=== PATIENT | female | born 1990 | race Two or more races ===

== ENCOUNTER → 2024-07-09 | Emergency (ER) | payer OTHER ==
[~2024-07-09] VITALS: Ht 154.9 cm; Wt 72.6 kg
== END | disposition left against medical advice (07) ==
LOC: ER 21:40
DX: Z53.21 Procedure and treatment not carried out due to patient leaving prior to being seen by health care provider (principal)

== ENCOUNTER 2024-07-15 13:20 | Outpatient (CLI) | payer OTHER | END 2024-07-15 13:21 | disposition home or self-care (01) | LOC: PRENATAL 13:20 | PROVIDERS: ATTEND Obstetrics & Gynecology Maternal & Fetal Medicine | DX: O36.80X0 Pregnancy with inconclusive fetal viability, not applicable or unspecified (principal); Z36.82 Encounter for antenatal screening for nuchal translucency; Z14.8 Genetic carrier of other disease; O09.519 Supervision of elderly primigravida, unspecified trimester; Z3A.12 12 weeks gestation of pregnancy ==

== ENCOUNTER → 2024-09-08 10:25 | Outpatient (CLI) | payer OTHER | END | disposition home or self-care (01) | LOC: PRENATAL 10:25 | PROVIDERS: ATTEND Obstetrics & Gynecology Maternal & Fetal Medicine | DX: O44.00 Complete placenta previa NOS or without hemorrhage, unspecified trimester (principal); O09.519 Supervision of elderly primigravida, unspecified trimester; O26.879 Cervical shortening, unspecified trimester; Z3A.20 20 weeks gestation of pregnancy ==

== ENCOUNTER 2024-09-20 11:49 | Outpatient (CLI) | payer OTHER ==
[2024-09-20 11:37] VITALS: BP 101/65
[2024-09-20] MEDS ORDERED: ENDOMETRIN100 MG VG (12:14)
[2024-09-20] MEDS ORDERED: PRENATAL TABLE1 EAC1 PO (12:14)
[2024-09-20] MEDS ORDERED: RINGERS SOLUTION,LACTATED 1,000 ML IV SCH (12:15)
[2024-09-20] MEDS ORDERED: CHILDREN'S ASPI81 MG (12:15)
[2024-09-20 12:20] LABS: PH,URINE 6.5 (5.0-8.0); URINE APPEARANCE Clear; URINE BACTERIA 117.5 uL (0.0-1933); URINE BILIRRUBIN Negative (NEGATIVE); URINE BLOOD Negative; URINE COLOR Yellow; URINE EPITHELIAL CELLS 5.6 uL (0.0-38.8); URINE GLUCOSE Negative (NEGATIVE); URINE KETONE Negative (NEGATIVE); URINE LEUKOCYTE Negative; URINE NITRATE Negative; URINE PROTEIN Negative (NEGATIVE); URINE RBC 15.9 uL (0.0-20.8); URINE UROBILINOGEN 0.2 E.U./dl; URINE WBC 6.3 uL (0.0-23.2)
[2024-09-20 12:32] LABS: URINE CAST 0.14 uL (0.0-1.40)
[2024-09-20 15:34] VITALS: BP 98/62
[2024-09-20 19:22] VITALS: BP 100/70
== END 2024-09-20 17:59 | disposition home or self-care (01) ==
LOC: OBS/DEL 11:49
PROVIDERS: ATTEND General Practice
DX: O26.892 Other specified pregnancy related conditions, second trimester (principal); O26.849 Uterine size-date discrepancy, unspecified trimester; O36.8199 Decreased fetal movements, unspecified trimester, other fetus; O26.879 Cervical shortening, unspecified trimester; Z3A.22 22 weeks gestation of pregnancy

== ENCOUNTER 2024-10-04 08:04 | Outpatient (CLI) | payer OTHER ==
[~2024-10-04 08:04] MED LIST: CHILDREN'S ASPI81 MG; ENDOMETRIN100 MG VG; PRENATAL TABLE1 EAC1 PO
== END 2024-10-04 08:05 | disposition home or self-care (01) ==
LOC: PRENATAL 08:04
PROVIDERS: ATTEND Obstetrics & Gynecology Maternal & Fetal Medicine
DX: O26.849 Uterine size-date discrepancy, unspecified trimester (principal); O09.519 Supervision of elderly primigravida, unspecified trimester; O26.879 Cervical shortening, unspecified trimester; Z3A.24 24 weeks gestation of pregnancy

== ENCOUNTER 2024-11-05 10:34 | Outpatient (CLI) | payer OTHER | END 2024-11-05 10:35 | disposition home or self-care (01) | LOC: PRENATAL 10:34 | PROVIDERS: ATTEND Obstetrics & Gynecology Maternal & Fetal Medicine | DX: O26.849 Uterine size-date discrepancy, unspecified trimester (principal); O09.519 Supervision of elderly primigravida, unspecified trimester; O26.879 Cervical shortening, unspecified trimester; O99.019 Anemia complicating pregnancy, unspecified trimester; Z3A.29 29 weeks gestation of pregnancy ==

== ENCOUNTER 2024-11-09 08:44 | Outpatient (CLI) | payer OTHER | END 2024-11-09 08:46 | disposition home or self-care (01) | LOC: PRENATAL 08:44 | PROVIDERS: ATTEND Obstetrics & Gynecology Maternal & Fetal Medicine | DX: Z76.1 Encounter for health supervision and care of foundling (principal) ==

== ENCOUNTER → 2024-12-16 08:27 | Outpatient (CLI) | payer OTHER | END | disposition home or self-care (01) | LOC: PRENATAL 08:27 | PROVIDERS: ATTEND Obstetrics & Gynecology Maternal & Fetal Medicine | DX: O26.849 Uterine size-date discrepancy, unspecified trimester (principal); O36.8199 Decreased fetal movements, unspecified trimester, other fetus; O09.519 Supervision of elderly primigravida, unspecified trimester; O99.019 Anemia complicating pregnancy, unspecified trimester; Z3A.35 35 weeks gestation of pregnancy ==

== ENCOUNTER 2024-12-21 10:39 | Outpatient (CLI) | payer OTHER | END 2024-12-21 10:40 | disposition home or self-care (01) | LOC: PRENATAL 10:39 | PROVIDERS: ATTEND Obstetrics & Gynecology Maternal & Fetal Medicine | DX: Z76.1 Encounter for health supervision and care of foundling (principal) ==

== ENCOUNTER → 2025-01-06 12:10 | Outpatient (CLI) | payer OTHER ==
[~2025-01-06 12:10] MED LIST changes: +INTEGRA PLUS C1 EACH PO
== END | disposition home or self-care (01) ==
LOC: PRENATAL 12:10
PROVIDERS: ATTEND Obstetrics & Gynecology Maternal & Fetal Medicine
DX: O26.849 Uterine size-date discrepancy, unspecified trimester (principal); O36.8199 Decreased fetal movements, unspecified trimester, other fetus; O99.019 Anemia complicating pregnancy, unspecified trimester; Z3A.38 38 weeks gestation of pregnancy

== ENCOUNTER 2025-01-07 17:23 | Inpatient (IN) | payer OTHER ==
[~2025-01-07] VITALS: Ht 154.9 cm; Wt 93.9 kg
[2025-01-07 16:21] VITALS: BP 118/64; O2SAT 97
[~2025-01-07 17:23] MED LIST changes: -INTEGRA PLUS C1 EACH PO
[2025-01-07] MEDS ORDERED: INTEGRA PLUS C1 EACH PO (17:27)
[2025-01-07] MEDS ORDERED: RINGERS SOLUTION,LACTATED 1,000 ML IV SCH (17:30)
[2025-01-07 18:13] LABS: URINE APPEARANCE Cloudy; URINE BILIRRUBIN Negative (NEGATIVE); URINE BLOOD Large; URINE COLOR Yellow; URINE GLUCOSE Negative (NEGATIVE); URINE KETONE Trace (NEGATIVE); URINE LEUKOCYTE Moderate; URINE NITRATE Negative; URINE PROTEIN 30 (NEGATIVE); URINE UROBILINOGEN 1.0 E.U./dl
[2025-01-07 18:14] LABS: BASO % 0.3 % (0.1-1.2); EOS # 0.18 (0.04-0.54); EOS % 2.0 % (0.7-7.0); LYMPH # 1.09 (1.18-3.74); LYMPH % 12.2 % (19.3-53.1); MEAN PLATELET VOLUME 11.50 fl (9.4-12.4); MONO # 0.56 (0.24-0.82); MONO % 6.3 % (4.7-12.5); NEUT # 6.99 (1.56-6.13); NEUT % 78.4 % (34.0-71.1); RED CELL DISTRIBUTION WIDTH 18.3 % (11.6-14.4)
[2025-01-07 18:16] LABS: URINE BACTERIA 7245.4 uL (0.0-1933); URINE EPITHELIAL CELLS 79.3 uL (0.0-38.8); URINE RBC 35.4 uL (0.0-20.8); URINE WBC 173.6 uL (0.0-23.2)
[2025-01-07 18:26] LABS: URINE CAST 0.14 uL (0.0-1.40)
[2025-01-07 18:27] LABS: TYPE CELLS SQUAMOUS
[2025-01-07 18:38] LABS: INR 0.96
[2025-01-07 18:43] LABS: ALT/SGPT 26.0 U/L (12-78); AST/SGOT 24.0 U/L (15-37); BILIRUBIN TOTAL 0.3 mg/dL (0.3-1.2); BUN CREA RATIO 25.0 (7.0-25.0); CREATININE SERUM 0.61 mg/dL (0.55-1.02); GFR 110.98; GLOBULINA 3.7 G/DL (2.4-3.5); GLUCOSE FASTING 71.0 mg/dL (65-100); OSMOLALITY SERUM 279.0 MOSM/KG (275-295)
[2025-01-07 19:39] VITALS: BP 110/73
[2025-01-07] MEDS ORDERED: DIPHENHYDRAMINE HCL 50 MG/ML VIAL 1ML IV SCH (21:00)
[2025-01-07 23:21] VITALS: BP 112/73
[2025-01-08] VITALS (8 sets, daily range): BP systolic 106–117; BP diastolic 70–80; O2SAT 100
[2025-01-08] MEDS ORDERED: URSODIOL 300 MG CAPSULE PO SCH ×4 (14:00→17:00)
[2025-01-08] MEDS ORDERED: DIPHENHYDRAMINE HCL 50 MG/ML VIAL 1ML IV ONE (18:00)
[2025-01-08] MEDS ORDERED: DIPHENHYDRAMINE HCL 50 MG/ML VIAL 1ML IV NR (18:00)
[2025-01-09 01:15] VITALS: BP 118/76
[2025-01-09 04:07] VITALS: BP 116/77
[2025-01-09] MEDS ORDERED: RINGERS SOLUTION,LACTATED 1,000 ML IV SCH (04:45)
[2025-01-09 07:40] VITALS: BP 119/75
[2025-01-09 12:19] VITALS: BP 116/73
[2025-01-09] MEDS ORDERED: DIPHENHYDRAMINE HCL 25 MG CAPSULE PO PRN (12:30)
[2025-01-09] MEDS ORDERED: URSODIOL 300 MG CAPSULE PO SCH (13:00)
[2025-01-09 13:55] VITALS: BP 127/85
[2025-01-09 16:00] VITALS: BP 116/76
[2025-01-10 01:00] VITALS: BP 122/66
[2025-01-10 08:35] VITALS: BP 116/78; O2SAT 100
[2025-01-10 13:07] VITALS: BP 125/80; O2SAT 99
[2025-01-10 18:38] VITALS: BP 126/80
[2025-01-11 00:10] VITALS: BP 115/75
[2025-01-11 08:22] VITALS: BP 110/72
[2025-01-11 13:29] VITALS: BP 127/84
== END 2025-01-11 14:33 | disposition home or self-care (01) | DRG 833 ==
LOC: OBS/DEL 17:23 → LDR 01-08 14:11 → OB/GYN 01-08 14:11
PROVIDERS: ADMIT Student in an Organized Health Care Education/Training Program; ATTEND Student in an Organized Health Care Education/Training Program
PROC: 4A1HXCZ Monitoring of Products of Conception, Cardiac Rate, External Approach (ICD-10-PCS; principal; 2025-01-08)
DX: O99.713 Diseases of the skin and subcutaneous tissue complicating pregnancy, third trimester (principal); R21 Rash and other nonspecific skin eruption; Z3A.37 37 weeks gestation of pregnancy

== ENCOUNTER 2025-01-18 00:10 | Inpatient (IN) | payer OTHER ==
[2025-01-18] VITALS (10 sets, daily range): BP systolic 109–132; BP diastolic 66–86
[~2025-01-18] VITALS: Ht 154.9 cm; Wt 92.5 kg
[~2025-01-18 00:10] MED LIST changes: +INTEGRA PLUS C1 EACH PO
[2025-01-18] MEDS ORDERED: RINGERS SOLUTION,LACTATED 1,000 ML IV SCH (00:15)
[2025-01-18] MEDS ORDERED: INTEGRA PLUS C1 EACH (00:19)
[2025-01-18 00:57] LABS: BASO % 0.5 % (0.1-1.2); EOS # 0.32 (0.04-0.54); EOS % 3.1 % (0.7-7.0); LYMPH # 1.69 (1.18-3.74); LYMPH % 16.6 % (19.3-53.1); MEAN PLATELET VOLUME 11.70 fl (9.4-12.4); MONO # 0.66 (0.24-0.82); MONO % 6.5 % (4.7-12.5); NEUT # 7.37 (1.56-6.13); NEUT % 72.1 % (34.0-71.1); RED CELL DISTRIBUTION WIDTH 18.2 % (11.6-14.4); URINE APPEARANCE Clear; URINE BILIRRUBIN Negative (NEGATIVE); URINE BLOOD NHT; URINE COLOR Yellow; URINE GLUCOSE Negative (NEGATIVE); URINE KETONE Trace (NEGATIVE); URINE LEUKOCYTE Negative; URINE NITRATE Negative; URINE PROTEIN 30 (NEGATIVE); URINE UROBILINOGEN 0.2 E.U./dl
[2025-01-18 01:00] LABS: URINE BACTERIA 77.9 uL (0.0-1933); URINE EPITHELIAL CELLS 23.8 uL (0.0-38.8); URINE RBC 18.0 uL (0.0-20.8); URINE WBC 15.6 uL (0.0-23.2)
[2025-01-18 01:14] LABS: INR 0.95; URINE CAST 0.14 uL (0.0-1.40)
[2025-01-18 01:20] LABS: ALT/SGPT 27.0 U/L (12-78); AST/SGOT 23.0 U/L (15-37); BILIRUBIN TOTAL 0.24 mg/dL (0.3-1.2); BUN CREA RATIO 23.0 (7.0-25.0); CREATININE SERUM 0.61 mg/dL (0.55-1.02); GFR 110.98; GLOBULINA 3.6 G/DL (2.4-3.5); GLUCOSE FASTING 115.0 mg/dL (65-100); OSMOLALITY SERUM 281.0 MOSM/KG (275-295)
[2025-01-18] MEDS ORDERED: OXYTOCIN 500 ML IV SCH (07:00)
[2025-01-18] MEDS ORDERED: CHLORHEXIDINE GLUCONATE 120 ML BOTTLE TOP ONE ×3 (12:39→16:15)
[2025-01-18] MEDS ORDERED: ERYTHROMYCIN BASE OPHT 1GM EACH TUBE OP ONE ×2 (12:39→15:15)
[2025-01-18] MEDS ORDERED: LIDOCAINE HCL 1% 10ML VIAL ONE (12:39)
[2025-01-18] MEDS ORDERED: OXYTOCIN 20 UNITS/1000ML RL PIGGYBAG IV ONE ×2 (12:39→15:15)
[2025-01-18] MEDS ORDERED: OXYTOCIN 1,000 ML IV SCH (16:15)
[2025-01-18] MEDS ORDERED: DOCUSATE SODIUM 100MG CAP PO SCH (17:00)
[2025-01-18] MEDS ORDERED: BENZOCAINE/MENTHOL 90 ML BOTTLE TOP SCH (17:00)
[2025-01-19 01:01] VITALS: BP 116/72
[2025-01-19 08:10] VITALS: BP 121/76
[2025-01-19 11:06] LABS: BASO % 0.4 % (0.1-1.2); EOS # 0.13 (0.04-0.54); EOS % 1.1 % (0.7-7.0); LYMPH # 1.50 (1.18-3.74); LYMPH % 12.5 % (19.3-53.1); MEAN PLATELET VOLUME 11.90 fl (9.4-12.4); MONO # 0.50 (0.24-0.82); MONO % 4.2 % (4.7-12.5); NEUT # 9.76 (1.56-6.13); NEUT % 81.0 % (34.0-71.1); RED CELL DISTRIBUTION WIDTH 18.5 % (11.6-14.4)
[2025-01-19] MEDS ORDERED: SOD FERRIC GLUC COMPLX/SUCROSE 62.5 MG/5 ML AMPUL IV NR (13:00)
[2025-01-19 15:57] VITALS: BP 111/75
[2025-01-20 02:05] VITALS: BP 105/71
[2025-01-20] MEDS ORDERED: SOD FERRIC GLUC COMPLX/SUCROSE 62.5 MG/5 ML AMPUL IV SCH (09:00)
[2025-01-20] MEDS ORDERED: COLACE100 MG PO (16:40)
[2025-01-20] MEDS ORDERED: IBUPROFEN800 MG PO (16:40)
== END 2025-01-20 16:45 | disposition home or self-care (01) | DRG 807 ==
LOC: LDR 00:10 → OB/GYN 14:39
PROVIDERS: ADMIT Student in an Organized Health Care Education/Training Program; ATTEND Student in an Organized Health Care Education/Training Program
PROC: 10E0XZZ Delivery of Products of Conception, External Approach (ICD-10-PCS; principal; 2025-01-18)
PROC: 0KQM0ZZ Repair Perineum Muscle, Open Approach (ICD-10-PCS; 2025-01-18)
PROC: 4A1HXCZ Monitoring of Products of Conception, Cardiac Rate, External Approach (ICD-10-PCS; 2025-01-18)
DX: O70.1 Second degree perineal laceration during delivery (principal); O69.81X0 Labor and delivery complicated by cord around neck, without compression, not applicable or unspecified; Z37.0 Single live birth; Z3A.38 38 weeks gestation of pregnancy